=== PATIENT | male | born 1980 | race Hispanic/Latino ===

== ENCOUNTER 2019-12-18 18:22 | Emergency (ER) | payer SELFPAY ==
[2019-12-18] MEDS ORDERED: Adacel (T-DAP) 0.5 ML SYRINGE ONE (18:53)
--- NOTE | 2019-12-18 19:15 | RAD ---
Exam: XR Hand Rt 3 View STANDARD HISTORY: Crush injury to right middle finger. COMPARISON: None FINDINGS: There is a fracture involving the distal tuft of the distal phalanx right middle finger with mild sep aration of fracture fragments. Subcutaneous soft tissue irregularity and overlying bandaging material is present. This fracture is just beneath the nailbed, and open fracture cannot be excluded based on radiographic evaluation. No additional fracture or dislocation is seen. No other findings. IMPRESSION: Mildly fracture tuft distal phalanx right middle finger with adjacent soft tissue irregular ity likely attributable to laceration. An open fracture cannot be excluded as this fracture is just beneath the level of the nailbed.
[2019-12-18] MEDS ORDERED: HYDROcodone/Acetaminophen 10/325 mg Tablet ONE (19:20)
[2019-12-18] MEDS ORDERED: CEFAZOLIN 1 GM VIAL ONE (20:29)
[2019-12-18] MEDS ORDERED: Sterile Water 10 ML ONE (20:30)
== END 2019-12-18 21:01 | disposition home or self-care (01) ==
LOC: ERS 18:22
DX: S62.632A Displaced fracture of distal phalanx of right middle finger, initial encounter for closed fracture (principal); W23.0XXA Caught, crushed, jammed, or pinched between moving objects, initial encounter; Z23 Encounter for immunization
CPT/HCPCS: 90471; 90715; 96372; J0690

== ENCOUNTER 2020-01-06 16:22 | Emergency (ER) | payer SELFPAY ==
[~2020-01-06 16:22] MED LIST: Iopamidol 300 61% 100 ML VIAL FS ONE
--- NOTE | 2020-01-06 18:43 | RAD ---
Retrograde urethrogram: 01/06/2020 HISTORY: 39-year-old male status post acute traumatic penile injury TECHNIQUE: Following placement of sterile Emile tree adapter with sterile lidocaine jelly into the navicular fossa, contrast was injected under fluoroscopy. FINDINGS: There is extravasation of contrast material at the posterior aspect of the bulbous urethra. The penil e urethra appears to be intact. No contrast material entered the prostatic or membranous urethra, or the urinary bladder. IMPRESSION: Laceration of the posterior aspect of the bulbous urethra
--- NOTE | 2020-01-07 01:43 | CON ---
DATE OF CONSULTATION: 01/06/2020 CONSULTING: Emergency room. REASON FOR CONSULTATION: Urethral injury. HISTORY OF PRESENT ILLNESS: Mr. Colunga is a 39-year-old male, who initially presented to the emergency room after a straddle injury. He was standing on a barrel working on his gutters to clean his house, attempting to clean them out. The lid of the barrel slipped off and he fell with one leg inside the barrel and another leg outside the barrel with a straddle injuring occurring on the perineum. He had immediate pain followed by bloody drainage from his urethra. He was then immediately taken to the emergency room. Upon his arrival to the emergency room, given the patient's history, he underwent a retrograde urethrogram, which I have reviewed personally, and demonstrates extravasation of contrast at the membranous to bulbar urethra. I was then consulted for further assistance on this patient's urethral injury. On my discussion with the patient, he states that he at baseline never had any urinary difficulties or urinary problems. He denies any previous urologic surgeries. He has no history of urinary tract infections, STDs, previous urologic surgeries or trauma, any prior history of hematuria or kidney stones. ALLERGIES: NONE. HOME MEDICATIONS: None. PAST MEDICAL HISTORY: None. PAST SURGICAL HISTORY: Appendectomy. FAMILY HISTORY: Noncontributory. SOCIAL HISTORY: The patient drinks alcohol socially but denies smoking or illicit drug use. REVIEW OF SYSTEMS: A 12-point review of systems reviewed and negative other than what was commented on the HPI, specifically perineal pain and bleeding from the urethra. PHYSICAL EXAMINATION: VITAL SIGNS: Temperature 98.6, pulse 110, respirations 19, blood pressure 156/95, saturation 99% on room air. GENERAL: No apparent distress. Communicative and alert, appears stated age, well nourished, well developed, answering questions appropriately. Of note, the patient has already received pain medication. HEENT: Normocephalic, atraumatic. Pupils are symmetric and round. Sclerae nonicteric. Trachea midline. Moist mucous membranes. CARDIOVASCULAR: Regular rate and rhythm. Normal S1, S2. Symmetric pulses. CHEST: No increased work of breathing, symmetric expansion. LUNGS: Clear anteriorly. ABDOMEN: Soft, nontender, and nondistended. Positive bowel sounds. No organomegaly, masses, or hernias noted. GENITOURINARY: The patient is circumcised. There is blood at the meatus. Testicles are palpated normally, bilaterally descended without masses, induration, or scrotal swelling. TERRENCE is deferred at this time. EXTREMITIES: No clubbing, cyanosis, or edema. MUSCULOSKELETAL: No joint deformities or joint erythema noted. Full range of motion of all extremities. SKIN: Warm, dry. No rashes or lesions. Good turgor. Multiple tattoos. NEUROLOGIC: Cranial nerves 2 through 12 grossly intact. No focal or sensory motor deficits identified. PSYCHIATRIC: Alert and orient x3, appropriate mood and affect. IMAGING DATA: Retrograde urethrogram; I have reviewed these images myself. Imaging demonstrates a normal-appearing urethra up to the point of the membranous to bulbar urethra at which point, there does appear to be contrast extravasation from the posterior aspect consistent with laceration of the posterior aspect of the bulbar urethra. PROCEDURE: Given the partial disruption of the urethra, mostly in the posterior location where the extravasation was noted, I discussed with the patient attempting to place a coude catheter. If this was unsuccessful, then I would go ahead and place a catheter under cystoscopic guidance. The patient was prepped and draped in usual sterile fashion. A 16-Tunisian coude catheter was passed with ease without any resistance directly into the bladder with release of initially bloody and then subsequently clear yellow urine. 10 cc of sterile water was placed into the balloon. The patient's catheter was secured to his leg with a StatLock. The patient tolerated the procedure well. ASSESSMENT AND PLAN: A 39-year-old male with bulbar urethral injury secondary to a straddle injury with successful placement of a urethral coude catheter. I would recommend that coude catheter stay in place for approximately 10 days, at which point we will perform a voiding trial and a subsequent cystoscopy to ensure that the urethral injury has healed. I did discuss that there is a risk for development of a urethral stricture despite catheter placement; however, his risk would be minimized since he does have a catheter. Nonetheless, I did give him symptoms and signs to look out for in the future if he does develop a stricture, so that we may address it. He also understands there is a slight risk of infection. I have gone over how to manage an indwelling Martínez catheter, how to care for the bags, and how to switch out between the leg bag and gravity bag. He understands and had time to ask all questions. I will plan to see him back in approximately 10 days for void trial and cystoscopy at that time. RECOMMENDATIONS: 1. The patient may be discharged home with his Martínez catheter. 2. Plan void trial in 10 days. 3. Patient understands risk of urethral stricture development. Job ID: [id number]
== END 2020-01-06 19:31 | disposition home or self-care (01) ==
LOC: ERS 16:22
DX: S37.30XA Unspecified injury of urethra, initial encounter (principal); W17.89XA Other fall from one level to another, initial encounter
CPT/HCPCS: 51610; 51702; 74450; Q9967

== ENCOUNTER 2020-01-11 01:13 | Emergency (ER) | payer SELFPAY | END 2020-01-11 01:41 | disposition home or self-care (01) | LOC: ERS 01:13 | DX: N48.89 Other specified disorders of penis (principal) | CPT/HCPCS: 99283 ==

== ENCOUNTER 2020-01-21 08:14 | Outpatient (CLI) | payer OTHER ==
--- NOTE | 2020-01-21 09:41 | RAD ---
EXAM: XR Urethrogram Retrograde PROVIDED CLINICAL HISTORY: Urethral straddle injury. Follow-up evaluation. COMPARISON: 01/06/2020 FINDINGS: Wood Scrap Handler images demonstrate surgical clips and radiopaque suture material overlying right lower quadrant . Bowel gas pattern is nonspecific. Osseous structures have a normal appearance. No suspicious calcifications are seen. The balloon on patient's Martínez catheter was deflated, and the Martínez catheter was withdrawn into the p enile urethra. A retrograde urethrogram was then performed. Again, the penile urethra appears intact. Contrast does not extend into the region of the prosthetic urethra or into the urinary bladde r. There is a rounded irregular area of contrast extravasation outside of the confines of the posterior aspect bulbar urethra which is in region of previously noted prominent extravasation of con trast on prior study. Findings have improved when compared to the prior study, but the small area of irregular extravasation of contrast is related to persistent contained leak. IMPRESSION: Persistent urethral injury involving the posterior aspect of the bulbous urethra with findings relate d to small focal area of extravasation of contrast suggesting a contained leak. However, the extensive extravasation noted in this region on the prior study has improved. Findings were reviewed with Dr. Ortega at the termination of this procedure.
== END 2020-01-21 08:15 | disposition home or self-care (01) ==
LOC: RAD 08:14
PROVIDERS: ATTEND Urology
DX: S37.39XD Other injury of urethra, subsequent encounter (principal)
CPT/HCPCS: 51610; 74450

== ENCOUNTER 2020-02-04 12:40 | Outpatient (CLI) | payer OTHER ==
--- NOTE | 2020-02-04 13:40 | RAD ---
EXAM: XR Urethrogram Retrograde PROVIDED CLINICAL HISTORY: Urethral straddle injury. Follow-up evaluation. COMPARISON: Studies on 01/21/2020 and 01/06/2020 FINDINGS: The balloon on patient's Martínez catheter was deflated, and the Martínez catheter was withdrawn into the p enile urethra. A retrograde urogram was then performed. The previously noted small focal area of extravasation outside the confines of the posterior bulbar urethra is not visualized on this examinat ion. The penile as well as bulbar urethra demonstrate a normal appearance without stricturing or extravasation of contrast to suggest a leak on this exam. Contrast is seen extending into the prostat ic urethra and subsequently into the urinary bladder. Patient's Martínez catheter was removed. IMPRESSION: Interval resolution of the small focal area of contrast extravasation at the level of the bulbar uret hra on study of 01/21/2020. No extravasation of contrast is seen on today's examination, and the visualized penile urethra as well as bulbar urethra have a normal appearance. Contrast extends into t he urinary bladder.
== END 2020-02-04 12:41 | disposition home or self-care (01) ==
LOC: MERGE 12:40 → RAD 12:40
PROVIDERS: ATTEND Urology
DX: S37.39XD Other injury of urethra, subsequent encounter (principal)
CPT/HCPCS: 51610; 74450; Q9967